=== PATIENT | male | born 1970 | race Caucasian/White ===

== ENCOUNTER → 2024-08-09 06:56 | Outpatient (REF) | payer OTHER, SELFPAY | LOC: REG 06:56 | PROVIDERS: ATTENDING PHYSICIAN Physician Assistant | DX: R06.02 Shortness of breath (principal) | CPT/HCPCS: 71046 ==

== ENCOUNTER → 2024-09-14 08:12 | Outpatient (REF) | payer OTHER, SELFPAY | LOC: RCS 08:12 | PROVIDERS: ATTENDING PHYSICIAN Internal Medicine Cardiovascular Disease; FAMILY PHYSICIAN Physician Assistant | DX: R06.02 Shortness of breath (principal); Z98.890 Other specified postprocedural states; R00.2 Palpitations | CPT/HCPCS: 93306 ==

== ENCOUNTER → 2024-09-20 12:49 | Outpatient (REF) | payer OTHER, SELFPAY | LOC: RAD 12:49 | PROVIDERS: ATTENDING PHYSICIAN Internal Medicine Cardiovascular Disease | DX: R06.02 Shortness of breath (principal) | CPT/HCPCS: 93017 ==

== ENCOUNTER → 2025-03-28 10:13 | Outpatient (REF) | payer OTHER, SELFPAY | LOC: RCS 10:13 | PROVIDERS: ATTENDING PHYSICIAN Internal Medicine Cardiovascular Disease; FAMILY PHYSICIAN Physician Assistant | DX: I77.810 Thoracic aortic ectasia (principal) | CPT/HCPCS: 93306 ==